=== PATIENT | female | born 1990 | race Caucasian/White ===

== ENCOUNTER 2017-10-16 10:09 | Inpatient (IN) | payer MEDICAID ==
[2017-10-16] MEDS ORDERED: CARBOPROST 250 MCG INJ IM (11:00)
[2017-10-16] MEDS ORDERED: MISOPROSTOL 200 MCG TAB PR (11:00)
[2017-10-16] MEDS ORDERED: OXYTOCIN 30 UNITS/LR 500 ML IV (11:00)
[2017-10-16] MEDS ORDERED: IBUPROFEN 600 MG TAB PO (11:00)
[2017-10-16] MEDS ORDERED: METHYLERGONOVINE 0.2 MG INJ IM (11:00)
[2017-10-16] MEDS ORDERED: LIDOCAINE 1% (MPF) 30 ML INJ INJ (11:00)
[2017-10-16] MEDS ORDERED: OXYCODONE/ACETAMINOPHEN (5/325) TAB PO (11:00)
[2017-10-16] MEDS ORDERED: BUTORPHANOL 2 MG INJ IV (11:00)
[2017-10-16 12:08] LABS: ADD MAN DIFF? NO
[2017-10-16] MEDS: LACTATED RINGER'S 1,000 ML IV ×2 (12:08→19:02)
[2017-10-16 12:10] LABS: WHITE BLOOD COUNT 9.7 10^3/ul (4.8-10.8)
[2017-10-16 12:10] LABS: BASOPHILS % 0.2 % (0.0-2.0); EOSINOPHILS % 0.2 % (0.0-7.0); HEMATOCRIT 41.7 % (37.0-47.0); HEMOGLOBIN 14.9 g/dl (12.0-16.0); LYMPHOCYTES # 1.4 10^3/ul (0.8-2.9); LYMPHOCYTES % 14.4 % (15.0-51.0); MEAN CORPUSCULAR HEMOGLOBIN 31.9 pg (29.0-33.0); MEAN CORPUSCULAR HGB CONC 35.7 g/dl (32.0-37.0); MEAN CORPUSCULAR VOLUME 89.3 fl (82.0-101.0); MEAN PLATELET VOLUME 10.9 fl (7.4-10.4); MONOCYTE # 0.7 10^3/ul (0.3-0.9); MONOCYTES % 7.4 % (0.0-11.0); NEUTROPHIL # 7.5 10^3/ul (1.6-7.5); NEUTROPHILS % 77.5 % (39.0-77.0); PLATELET COUNT 197 10^3/UL (140-415); RED BLOOD COUNT 4.67 10^6/ul (4.20-5.40); RED CELL DISTRIBUTION WIDTH 12.8 % (11.5-14.5)
[2017-10-16] MEDS: MISOPROSTOL 25 MCG CAPSULE PO ×3 (12:20→23:12)
[2017-10-16 12:28] LABS: INR 0.85; PROTIME 11.7 Sec (11.9-14.9); PT RATIO 0.9
[2017-10-16 12:29] LABS: PARTIAL THROMBOPLASTIN TIME 26.9 Sec (25.0-35.0)
[2017-10-16 21:33] LABS: RAPID PLASMA REAGIN NONREACTIVE (NR)
[2017-10-17] MEDS: AMPICILLIN 2 GM/NS (PMX) 100 ML IV (01:01)
[2017-10-17] MEDS: LACTATED RINGER'S 1,000 ML IV ×4 (03:24→18:22)
[2017-10-17] MEDS: BUTORPHANOL 2 MG INJ IV (03:27)
[2017-10-17] MEDS: AMPICILLIN 1 GM/NS (PMX) 50 ML IV ×4 (04:45→17:01)
[2017-10-17] MEDS ORDERED: FENTAnyl 2MCG/ML-ROPIV 0.2% 100 ML (05:18)
[2017-10-17] MEDS ORDERED: LACTATED RINGER'S 1,000 ML IV (05:20)
[2017-10-17] MEDS ORDERED: DIPHENHYDRAMINE 50 MG INJ IV (06:30)
[2017-10-17] MEDS ORDERED: TRIMETHOBENZAMIDE 100 MG/ML VIAL IM (06:30)
[2017-10-17] MEDS ORDERED: NALOXONE (0.4 MG/ML) INJ IV (06:30)
[2017-10-17] MEDS ORDERED: ONDANSETRON 4 MG INJ IV ×2 (06:30→22:00)
[2017-10-17] MEDS: OXYTOCIN 30 UNITS/LR 500 ML IV ×2 (08:28→19:26)
[2017-10-17] MEDS: FENTAnyl 2MCG/ML-ROPIV 0.2% 100 ML BAG EPI (13:21)
[2017-10-17] MEDS: ACETAMINOPHEN 325 MG TAB PO ×2 (15:42→22:07)
[2017-10-17] MEDS ORDERED: HYDROCODONE/APAP (5/325) TAB PO ×2 (22:00)
[2017-10-17] MEDS ORDERED: OXYCODONE/ASPIRIN (4.88/325) TAB PO ×2 (22:00)
[2017-10-18] MEDS: IBUPROFEN 600 MG TAB PO ×5 (00:13→23:39)
[2017-10-18] MEDS: WITCH HAZEL/GLYCERIN PAD PR (00:14)
[2017-10-18] MEDS: BENZOCAINE 20% 56 ML SPRAY TOP (00:14)
[2017-10-18] MEDS: LANOLIN 7 GM TUBE TOP (00:15)
[2017-10-18] MEDS: DIBUCAINE 1% 30 GM OINT PR (00:15)
[2017-10-18] MEDS: OXYTOCIN 30 UNITS/LR 500 ML IV (00:17)
[2017-10-18] MEDS: SENNA/DOCUSATE NA (8.6MG/50MG) TAB PO ×2 (09:37→21:06)
[2017-10-18 14:36] LABS: ADD MAN DIFF? NO
[2017-10-18 14:42] LABS: WHITE BLOOD COUNT 17.2 10^3/ul (4.8-10.8)
[2017-10-18 14:42] LABS: BASOPHILS % 0.2 % (0.0-2.0); EOSINOPHILS % 0.1 % (0.0-7.0); HEMATOCRIT 37.8 % (37.0-47.0); HEMOGLOBIN 13.1 g/dl (12.0-16.0); LYMPHOCYTES # 1.6 10^3/ul (0.8-2.9); LYMPHOCYTES % 9.5 % (15.0-51.0); MEAN CORPUSCULAR HEMOGLOBIN 31.9 pg (29.0-33.0); MEAN CORPUSCULAR HGB CONC 34.7 g/dl (32.0-37.0); MEAN PLATELET VOLUME 10.8 fl (7.4-10.4); MONOCYTE # 0.9 10^3/ul (0.3-0.9); MONOCYTES % 5.2 % (0.0-11.0); NEUTROPHIL # 14.6 10^3/ul (1.6-7.5); NEUTROPHILS % 84.4 % (39.0-77.0); PLATELET COUNT 162 10^3/UL (140-415); RED BLOOD COUNT 4.11 10^6/ul (4.20-5.40); RED CELL DISTRIBUTION WIDTH 13.2 % (11.5-14.5)
[2017-10-19] MEDS: IBUPROFEN 600 MG TAB PO ×2 (05:32→11:50)
[2017-10-19] MEDS: MEASLES,MUMPS,RUBELLA VACCINE INJ SC* (09:19)
[2017-10-19] MEDS: SENNA/DOCUSATE NA (8.6MG/50MG) TAB PO (09:19)
[2017-10-19 10:53] LABS: ADD MAN DIFF? NO
[2017-10-19 10:58] LABS: BASOPHILS % 0.2 % (0.0-2.0); EOSINOPHILS # 0.1 10^3/ul (0.0-0.5); EOSINOPHILS % 0.5 % (0.0-7.0); HEMATOCRIT 35.8 % (37.0-47.0); HEMOGLOBIN 12.4 g/dl (12.0-16.0); LYMPHOCYTES # 1.6 10^3/ul (0.8-2.9); LYMPHOCYTES % 11.3 % (15.0-51.0); MEAN CORPUSCULAR HGB CONC 34.6 g/dl (32.0-37.0); MEAN CORPUSCULAR VOLUME 92.5 fl (82.0-101.0); MONOCYTE # 0.6 10^3/ul (0.3-0.9); MONOCYTES % 4.3 % (0.0-11.0); NEUTROPHILS % 82.9 % (39.0-77.0); NUCLEATED RED BLOOD CELLS% 0.1 /100WBC (0.0-0.0); PLATELET COUNT 173 10^3/UL (140-415); RED BLOOD COUNT 3.87 10^6/ul (4.20-5.40); RED CELL DISTRIBUTION WIDTH 13.4 % (11.5-14.5)
[2017-10-19 10:58] LABS: WHITE BLOOD COUNT 14.5 10^3/ul (4.8-10.8)
== END 2017-10-19 13:30 | disposition home or self-care (01) | DRG 775 ==
LOC: OBT 10:09 → PP1 10-17 21:43 → L-D 10:10 → OBT 10:45 → L-D 10:45
PROVIDERS: Obstetrics & Gynecology
PROC: 10E0XZZ Delivery of Products of Conception, External Approach (ICD-10-PCS; principal; 2017-10-17)
PROC: 0KQM0ZZ Repair Perineum Muscle, Open Approach (ICD-10-PCS; 2017-10-17)
PROC: 3E033VJ Introduction of Other Hormone into Peripheral Vein, Percutaneous Approach (ICD-10-PCS; 2017-10-17)
DX: O48.0 Post-term pregnancy (principal); O70.1 Second degree perineal laceration during delivery; Z3A.40 40 weeks gestation of pregnancy; Z37.0 Single live birth
CPT/HCPCS: 62319; 76818; 85025; 85610; 85730; 86592; 86900; 86901; 88307

== ENCOUNTER 2018-12-18 06:47 | Inpatient (IN) | payer MEDICAID ==
[2018-12-18] MEDS ORDERED: OXYTOCIN 30 UNITS/LR 500 ML IV ×2 (08:00→14:30)
[2018-12-18] MEDS ORDERED: CARBOPROST 250 MCG INJ IM ×2 (08:00→14:30)
[2018-12-18] MEDS ORDERED: MISOPROSTOL 200 MCG TAB PR ×2 (08:00→14:30)
[2018-12-18] MEDS ORDERED: METHYLERGONOVINE 0.2 MG INJ IM ×2 (08:00→14:30)
[2018-12-18] MEDS ORDERED: LIDOCAINE 1% (MPF) 30 ML INJ INJ (08:00)
[2018-12-18] MEDS ORDERED: BUTORPHANOL 2 MG INJ IV (08:00)
[2018-12-18] MEDS: LACTATED RINGER'S 1,000 ML IV ×2 (08:09→09:39)
[2018-12-18 08:14] LABS: ADD MAN DIFF? NO
[2018-12-18 08:17] LABS: WHITE BLOOD COUNT 13.5 10^3/ul (4.8-10.8)
[2018-12-18 08:17] LABS: BASOPHILS % 0.2 % (0.0-2.0); EOSINOPHILS % 0.1 % (0.0-7.0); HEMATOCRIT 42.6 % (37.0-47.0); HEMOGLOBIN 14.6 g/dl (12.0-16.0); LYMPHOCYTES # 1.6 10^3/ul (0.8-2.9); LYMPHOCYTES % 11.8 % (15.0-51.0); MEAN CORPUSCULAR HEMOGLOBIN 30.4 pg (29.0-33.0); MEAN CORPUSCULAR HGB CONC 34.3 g/dl (32.0-37.0); MEAN CORPUSCULAR VOLUME 88.8 fl (82.0-101.0); MONOCYTE # 0.7 10^3/ul (0.3-0.9); MONOCYTES % 5.5 % (0.0-11.0); NEUTROPHILS % 81.7 % (39.0-77.0); PLATELET COUNT 238 10^3/UL (140-415); RED CELL DISTRIBUTION WIDTH 13.3 % (11.5-14.5)
[2018-12-18 08:36] LABS: INR 0.83; PARTIAL THROMBOPLASTIN TIME 27.8 Sec (23.0-35.0); PROTIME 11.5 Sec (11.9-14.9); PT RATIO 0.9
[2018-12-18] MEDS ORDERED: FENTAnyl 2MCG/ML-ROPIV 0.2% 100 ML (08:57)
[2018-12-18 09:09] LABS: HEPATITIS B SURFACE ANTIGEN NEGATIVE (NEGATIVE)
[2018-12-18] MEDS ORDERED: NALOXONE (0.4 MG/ML) INJ IV (11:00)
[2018-12-18] MEDS ORDERED: FENTAnyl 2MCG/ML-ROPIV 0.2% 100 ML BAG EPI (11:00)
[2018-12-18] MEDS: OXYTOCIN 30 UNITS/LR 500 ML IV ×2 (11:16→12:04)
[2018-12-18] MEDS ORDERED: LACTATED RINGER'S 1,000 ML IV* (14:01)
[2018-12-18] MEDS ORDERED: DEXTROSE 5%-LR 1,000 ML IV (14:01)
[2018-12-18] MEDS ORDERED: DIPHENHYDRAMINE 50 MG INJ IV (14:30)
[2018-12-18] MEDS ORDERED: MAGNESIUM HYDROXIDE 30ML CUP PO (14:30)
[2018-12-18] MEDS ORDERED: ACETAMINOPHEN 325 MG TAB PO (14:30)
[2018-12-18] MEDS ORDERED: ONDANSETRON 4 MG INJ IV (14:30)
[2018-12-18] MEDS ORDERED: SENNA/DOCUSATE NA (8.6MG/50MG) TAB PO (14:30)
[2018-12-18] MEDS ORDERED: ZOLPIDEM 5 MG TAB PO (14:30)
[2018-12-18] MEDS: IBUPROFEN 600 MG TAB PO ×2 (17:30→23:56)
[2018-12-18] MEDS: WITCH HAZEL/GLYCERIN PAD PR (17:31)
[2018-12-18] MEDS: LANOLIN HPA 1 PKT TOP (17:31)
[2018-12-18] MEDS: DIBUCAINE 1% 30 GM OINT TOP (17:31)
[2018-12-18] MEDS: BENZOCAINE 20% 56 ML SPRAY TOP (17:31)
[2018-12-18 19:19] LABS: RAPID PLASMA REAGIN NONREACTIVE (NR)
[2018-12-19] MEDS: IBUPROFEN 600 MG TAB PO ×3 (05:19→17:40)
[2018-12-19 08:29] LABS: ADD MAN DIFF? NO
[2018-12-19 08:38] LABS: BASOPHILS % 0.2 % (0.0-2.0); EOSINOPHILS # 0.1 10^3/ul (0.0-0.5); EOSINOPHILS % 0.4 % (0.0-7.0); HEMATOCRIT 34.9 % (37.0-47.0); HEMOGLOBIN 11.5 g/dl (12.0-16.0); LYMPHOCYTES # 2.1 10^3/ul (0.8-2.9); LYMPHOCYTES % 18.7 % (15.0-51.0); MEAN CORPUSCULAR HEMOGLOBIN 29.9 pg (29.0-33.0); MEAN CORPUSCULAR VOLUME 90.9 fl (82.0-101.0); MEAN PLATELET VOLUME 11.2 fl (7.4-10.4); MONOCYTE # 0.8 10^3/ul (0.3-0.9); MONOCYTES % 6.9 % (0.0-11.0); NEUTROPHIL # 8.3 10^3/ul (1.6-7.5); NEUTROPHILS % 73.3 % (39.0-77.0); PLATELET COUNT 164 10^3/UL (140-415); RED BLOOD COUNT 3.84 10^6/ul (4.20-5.40); RED CELL DISTRIBUTION WIDTH 13.9 % (11.5-14.5)
[2018-12-19 08:38] LABS: WHITE BLOOD COUNT 11.4 10^3/ul (4.8-10.8)
[2018-12-20] MEDS: IBUPROFEN 600 MG TAB PO ×2 (00:11→05:39)
[2018-12-20] MEDS: MEASLES,MUMPS,RUBELLA VACCINE INJ SC* (09:35)
[2018-12-20] MEDS: OXYCODONE/ASPIRIN (4.88/325) TAB PO (10:35)
[2018-12-20] MEDS: DIPHTH/TET/ACEL PERTUSS (ADULT) 0.5 ML VIAL IM* (10:40)
== END 2018-12-20 12:35 | disposition home or self-care (01) | DRG 768 ==
LOC: OBT 06:47 → L-D 06:47 → OBT 07:15 → L-D 07:15 → PP1 15:12
PROVIDERS: Obstetrics & Gynecology
PROC: 10E0XZZ Delivery of Products of Conception, External Approach (ICD-10-PCS; principal; 2018-12-18)
PROC: 0DQR0ZZ Repair Anal Sphincter, Open Approach (ICD-10-PCS; 2018-12-18)
PROC: 0W8NXZZ Division of Female Perineum, External Approach (ICD-10-PCS; 2018-12-18)
DX: O70.20 Third degree perineal laceration during delivery, unspecified (principal); Z37.0 Single live birth; O69.81X0 Labor and delivery complicated by cord around neck, without compression, not applicable or unspecified; Z3A.39 39 weeks gestation of pregnancy; Z23 Encounter for immunization
CPT/HCPCS: 62319; 76818; 85025; 85610; 85730; 86592; 86850; 86900; 86901; 87340; 88307; 90715